=== PATIENT | female | born 1955 | race Two or more races ===

== ENCOUNTER 2017-10-19 07:01 | Emergency (ER) | payer OTHER ==
[~2017-10-19] VITALS: Ht 160 cm; Wt 59.9 kg
[~2017-10-19 07:01] MED LIST: ALBUTEROL SULFAT2 MG PO; CATAFLAM50 MG PO; MICRO-K10 MEQ PO; NORFLEX100MG PO; PREDNISONE20 MG PO; SINGULAIR10 MG; SINGULAIR10 MG PO; SYNTHROID50 MCG; SYNTHROID50 MCG PO
[2017-10-19] MEDS ORDERED: SYNTHROID100 MCG (07:34)
[2017-10-19] MEDS ORDERED: METFORMIN HCL500 MG (07:35)
== END 2017-10-19 16:22 | disposition home or self-care (01) ==
LOC: ER 07:01
DX: J45.998 Other asthma (principal)

== ENCOUNTER 2018-01-12 06:36 | Emergency (ER) | payer OTHER ==
[~2018-01-12] VITALS: Ht 162.6 cm; Wt 59.9 kg
[~2018-01-12 06:36] MED LIST changes: +METFORMIN HCL500 MG; +SYNTHROID100 MCG
[2018-01-12] MEDS ORDERED: ALBUTEROL0.63 MG/3 (06:47)
[2018-01-12] MEDS ORDERED: MEDROLPACK PO (16:59)
== END 2018-01-12 17:20 | disposition home or self-care (01) ==
LOC: ER 06:36
DX: K52.89 Other specified noninfective gastroenteritis and colitis (principal); R10.13 Epigastric pain; E86.0 Dehydration

== ENCOUNTER 2018-02-28 06:57 | Emergency (ER) | payer OTHER ==
[~2018-02-28] VITALS: Ht 160 cm; Wt 60.8 kg
[~2018-02-28 06:57] MED LIST changes: +ALBUTEROL0.63 MG/3; +MEDROLPACK PO
== END 2018-02-28 12:17 | disposition home or self-care (01) ==
LOC: ER 06:57
DX: J45.998 Other asthma (principal); B34.9 Viral infection, unspecified

== ENCOUNTER 2019-02-08 19:53 | Emergency (ER) | payer OTHER ==
[~2019-02-08] VITALS: Ht 160 cm; Wt 62.6 kg
[2019-02-09] MEDS ORDERED: SYMBICORT 16010.2 GM IH (02:05)
[2019-02-09] MEDS ORDERED: ALBUTEROL2.5 MG/3 M IH (02:05)
[2019-02-09] MEDS ORDERED: ZYNCOF 20-400120 ML PO (02:05)
[2019-02-09] MEDS ORDERED: SINGULAIR 10MG10 MG PO (02:05)
== END 2019-02-09 01:59 | disposition home or self-care (01) ==
LOC: ER 19:53
DX: J45.998 Other asthma (principal)

== ENCOUNTER 2020-12-25 12:55 | Emergency (ER) | payer OTHER ==
[~2020-12-25] VITALS: Ht 160 cm; Wt 58.5 kg
[~2020-12-25 12:55] MED LIST changes: +ALBUTEROL2.5 MG/3 M IH; +SINGULAIR 10MG10 MG PO; +SYMBICORT 16010.2 GM IH; +ZYNCOF 20-400120 ML PO
== END 2020-12-25 20:24 | disposition home or self-care (01) ==
LOC: ER 12:55
DX: J45.998 Other asthma (principal)

== ENCOUNTER 2021-03-05 09:07 | Emergency (ER) | payer OTHER ==
[~2021-03-05] VITALS: Ht 160 cm; Wt 59.0 kg
== END 2021-03-05 18:25 | disposition home or self-care (01) ==
LOC: ER 09:07
DX: J45.998 Other asthma (principal); R06.02 Shortness of breath; Z03.818 Encounter for observation for suspected exposure to other biological agents ruled out

== ENCOUNTER 2021-11-29 20:07 | Emergency (ER) | payer OTHER ==
[~2021-11-29] VITALS: Ht 160 cm; Wt 54.4 kg
== END 2021-11-29 22:24 | disposition home or self-care (01) ==
LOC: ER 20:07
DX: K29.70 Gastritis, unspecified, without bleeding (principal)

== ENCOUNTER 2022-10-22 07:08 | Outpatient (CLI) | payer OTHER | END 2022-10-22 07:10 | disposition home or self-care (01) | LOC: NUCLEAR 07:08 | DX: R14.0 Abdominal distension (gaseous) (principal) | CPT/HCPCS: 78264; A9541 ==

== ENCOUNTER 2023-05-03 10:13 | Emergency (ER) | payer OTHER ==
[~2023-05-03] VITALS: Ht 160 cm; Wt 55.8 kg
[2023-05-03] MEDS ORDERED: GLIPIZIDE XL5 MG (10:21)
[2023-05-03] MEDS ORDERED: METFORMIN HCL1000 M2 (10:21)
[2023-05-03] MEDS ORDERED: SIMVASTATIN5 MG (10:22)
[2023-05-03] MEDS ORDERED: LIPITOR20 MG (10:22)
[2023-05-03] MEDS ORDERED: ACETAMINOPHEN 500 MG GEL..CAP PO STA (11:10)
[2023-05-03 11:34] LABS: CALCIUM 9.2 mg/dL (8.5-10.1); CREATININE SERUM 0.73 mg/dL (0.55-1.02); GFR 79.28; POTASSIUM 3.55 mEq/L (3.5-5.1)
[2023-05-03 11:46] LABS: HEMATOCRIT 38.9 % (36.0-45.00); HEMOGLOBIN 13.3 g/dL (12.0-15.00); MEAN CELL VOLUME 82.1 fL (80.00-100.00); MEAN CORPUSCULAR HGB CONC 34.1 g/dl (32.0-36.0); PLATELET COUNT 267 K/uL (150-450); RED BLOOD COUNT 4.74 M/uL (4.00-6.00); RED CELL DISTRIBUTION WIDTH 14.2 % (11.5-14.5)
[2023-05-03 11:48] LABS: URINE APPEARANCE Clear; URINE BILIRRUBIN Negative (NEGATIVE); URINE BLOOD Negative; URINE COLOR Yellow; URINE GLUCOSE Negative (NEGATIVE); URINE LEUKOCYTE Negative; URINE NITRATE Negative; URINE PROTEIN Negative (NEGATIVE); URINE UROBILINOGEN 0.2 E.U./dl
[2023-05-03 11:52] LABS: URINE BACTERIA 67.9 uL (0.0-1933); URINE EPITHELIAL CELLS 2.3 uL (0.0-38.8); URINE RBC 6.1 uL (0.0-20.8)
[2023-05-03 11:56] LABS: URINE WBC 1.6 uL (0.0-23.2)
== END 2023-05-03 14:31 | disposition home or self-care (01) ==
LOC: ER 10:13
PROVIDERS: General Practice
DX: S00.93XA Contusion of unspecified part of head, initial encounter (principal); W19.XXXA Unspecified fall, initial encounter; Y93.9 Activity, unspecified; Y92.018 Other place in single-family (private) house as the place of occurrence of the external cause; Y99.9 Unspecified external cause status; R56.9 Unspecified convulsions; E11.9 Type 2 diabetes mellitus without complications; Z79.84 Long term (current) use of oral hypoglycemic drugs; I10 Essential (primary) hypertension; E03.9 Hypothyroidism, unspecified; I50.9 Heart failure, unspecified; Z87.09 Personal history of other diseases of the respiratory system; Z20.822 Contact with and (suspected) exposure to COVID-19

== ENCOUNTER 2023-05-22 07:31 | Emergency (ER) | payer OTHER ==
[~2023-05-22] VITALS: Ht 160 cm; Wt 58.5 kg
[~2023-05-22 07:31] MED LIST changes: +GLIPIZIDE XL5 MG; +LIPITOR20 MG; +METFORMIN HCL1000 M2; +SIMVASTATIN5 MG
[2023-05-22] MEDS ORDERED: THEOPHYLLINE400 MG (07:46)
[2023-05-22] MEDS ORDERED: CAMBIA50 MG (07:46)
[2023-05-22] MEDS ORDERED: OMEPRAZOLE20 MG (07:47)
[2023-05-22] MEDS ORDERED: ALENDRONATE SOD70 MG (07:47)
[2023-05-22] MEDS ORDERED: 0.9 % SODIUM CHLORIDE 1,000 ML IV SCH (08:45)
[2023-05-22 08:53] LABS: HEMATOCRIT 41.4 % (36.0-45.00); HEMOGLOBIN 14.2 g/dL (12.0-15.00); MEAN CELL VOLUME 81.3 fL (80.00-100.00); MEAN CORPUSCULAR HEMOGLOBIN 27.8 pg (27.00-32.0); MEAN CORPUSCULAR HGB CONC 34.1 g/dl (32.0-36.0); PLATELET COUNT 261 K/uL (150-450); RED CELL DISTRIBUTION WIDTH 14.1 % (11.5-14.5)
[2023-05-22 09:22] LABS: CALCIUM 9.3 mg/dL (8.5-10.1); CREATININE SERUM 0.74 mg/dL (0.55-1.02); GFR 78.04; POTASSIUM 3.59 mEq/L (3.5-5.1)
[2023-05-22 09:41] LABS: URINE APPEARANCE Clear; URINE BILIRRUBIN Negative (NEGATIVE); URINE BLOOD Negative; URINE COLOR Yellow; URINE GLUCOSE Negative (NEGATIVE); URINE LEUKOCYTE Negative; URINE NITRATE Negative; URINE PROTEIN Negative (NEGATIVE); URINE UROBILINOGEN 0.2 E.U./dl
[2023-05-22 10:41] LABS: URINE RBC 0.4 uL (0.0-20.8)
== END 2023-05-22 13:53 | disposition home or self-care (01) ==
LOC: ER 07:31
PROVIDERS: Emergency Medicine
DX: R42 Dizziness and giddiness (principal); E11.9 Type 2 diabetes mellitus without complications; Z79.84 Long term (current) use of oral hypoglycemic drugs
CPT/HCPCS: 36415; 70450; 93005; 96365; 96366; 99284; J7030